=== PATIENT | male | born 1980 | race Two or more races ===

== ENCOUNTER 2019-02-04 09:04 | Emergency (ER) | payer SELFPAY ==
[~2019-02-04] VITALS: Ht 167.6 cm; Wt 68.0 kg
[2019-02-04] MEDS ORDERED: KETOROLAC 60MG/2ML VIAL IM ONE (11:15)
[2019-02-04] MEDS ORDERED: KETOROLAC 30MG/ML VIAL IV ONE (11:30)
[2019-02-04 12:50] VITALS: BP 125/61
== END 2019-02-04 12:57 | disposition home or self-care (01) ==
LOC: ER 09:18
DX: S43.492A Other sprain of left shoulder joint, initial encounter (principal); S80.02XA Contusion of left knee, initial encounter; V49.40XA Driver injured in collision with unspecified motor vehicles in traffic accident, initial encounter; Y93.89 Activity, other specified; Y92.89 Other specified places as the place of occurrence of the external cause; Y99.8 Other external cause status
CPT/HCPCS: 73030; 73562; 96374; 99283; J1885